=== PATIENT | female | born 1995 | race Two or more races ===

== ENCOUNTER 2017-05-12 07:02 | Emergency (ER) | payer OTHER ==
--- NOTE | 2017-05-12 08:06 | ED ---
Yousuf Rodriguez Angela, scribed for Herbie Esqueda MD on 05/12/17 at 0756 . Asthma - HPI Summary HPI Summary: This pt is a 22 y/o female presenting to [facility] c/o an asthma attack this morning. Pt reports that her asthma attack today was induced by anxiety and her period. Today, pt has final exams and was on her way to take her exam. She also states that when she has her period, she has "really bad cramps" and gets nauseous. Today, her cramps were worse and had difficulty breathing and had nausea. At the health center, pt reports her abd was bloated. In the ambulance, pt notes her feet, hand and head were numb, now resolved. Pt was given albuterol and a nebulizer in the ambulance. Currently, pt denies any pain and states feeling better. She currently denies any calf pain, SOB, cough. LMP: 1 month ago, currently on it now. - History of Current Complaint Chief Complaint: EDShortnessOfBreath Stated Complaint: ASTHMA ATTACK Time Seen by Provider: 05/12/17 07:47 Hx Obtained From: Patient Onset/Duration: Sudden Onset, Resolved Timing: Hours Current Severity: None Pain Intensity: 0 Pain Scale Used: 0-10 Numeric Aggravating Symptoms: Other: - anxiety and menses Alleviating Symptoms: Inhalers/Nebulizers Associated Signs and Symptoms: Positive: Shortness of Breath - now resolved. Negative: Calf Pain, Edema, URI, Sinus Infection - Allergy/Home Medications Allergies/Adverse Reactions: Allergies Allergy/AdvReac Type Severity Reaction Status Date / Time No Known Allergies Allergy Verified 05/12/17 07:03 PMH/Surg Hx/FS Hx/Imm Hx Endocrine/Hematology History: Denies: Hx Diabetes Cardiovascular History: Denies: Hx Hypertension Infectious Disease History: No Infectious Disease History: Denies: Traveled Outside the [place] in Last 30 Days - Family History Known Family History: Positive: Hypertension, Diabetes, Other - Asthma - Social History Alcohol Use: Occasionally Substance Use Type: Reports: None Smoking Status (MU): Never Smoked Tobacco Review of Systems Negative: Fever, Chills Eyes: Negative ENT: Negative Cardiovascular: Negative Positive: Shortness Of Breath Gastrointestinal: Other - bloated abd, now resolved Positive: Nausea - now resolved Negative: Other - calf pain Skin: Negative Positive: Numbness - in feet, hands, and head (now resolved) Positive: Anxious - now resolved All Other Systems Reviewed And Are Negative: Yes Physical Exam - Summary Physical Exam Summary: General: well-appearing, no pain distress Skin: warm, color reflects adequate perfusion, dry Head: normal Eyes: EOMI, CAROLE ENT: normal Neck: supple, nontender Respiratory: CTA, breath sounds present Cardiovascular: RRR Abdomen: soft, nontender Bowel: present Musculoskeletal: normal, strength/ROM intact Neurological: normal, sensory/motor intact, A&O x3 Psychological: affect/mood appropriate Triage Information Reviewed: Yes Vital Signs On Initial Exam: Initial Vitals Temp Pulse Resp BP Pulse Ox 98 F 79 22 122/67 99 05/12/17 07:04 05/12/17 07:04 05/12/17 07:04 05/12/17 07:04 05/12/17 07:04 Vital Signs Reviewed: Yes Diagnostics - Vital Signs Vital Signs Temp Pulse Resp BP Pulse Ox 05/12/17 07:04 98 F 79 22 122/67 99 - Laboratory Lab Statement: Any lab studies that have been ordered have been reviewed, and results considered in the medical decision making process. Asthma Course/Dx - Course Course Of Treatment: Medications reviewed. BP noted and advised to follow up with PCP. PATIENT REPORTS WAS ANXIOUS WALKING TO HER FINAL EXAM AND HER PERIOD CRAMPS STARTED. TYPICALLY HER 1ST DAY PERIOD CRAMPS ARE SEVERE AND THEY CAUSE HER TO HAVE DIFFICULTY BREATHING. GREATLY IMPROVED WITH NEG IN AMBULANCE. NO PAIN NOW. SHE PLANS TO F/U WITH HER HOME [facility]UD [facility]ER AT HOME AFTER FINALS. WE DICUSSED DOING LAB WORK/ULTRASOUND/PELVIC/CXR IN THE ED. PATIENT STATES SHE FEELS BACK TO NORMAL AND WOULD LIKE TO BE DISCHARGED. - Diagnoses Provider Diagnoses: Asthma, Pelvic pain, Dysmenorrhea Discharge - Discharge Plan Condition: Stable Disposition: HOME Prescriptions: Albuterol HFA INHALER* [Ventolin HFA Inhaler*] 2 puff INH Q4H PRN #1 mdi PRN Reason: Dyspnea Patient Education Materials: Dysmenorrhea (ED), Asthma (ED), Pelvic Pain (ED) Forms: *School Release Referrals: [facility] [Primary Care Provider] - Additional Instructions: FOLLOW UP WITH YOUR DOCTOR AT [facility] AND YOUR [facility]. RETURN TO THE EMERGENCY DEPARTMENT FOR ANY WORSENING OF YOUR CONDITION; SHORTNESS OF BREATH, ABDOMINAL OR PELVIC PAIN, YOU FEEL ILL OR QUESTIONS OR CONCERNS. The documentation as recorded by the Yousuf pryor Angela accurately reflects the service I personally performed and the decisions made by me, Herbie Esqueda MD.
[2017-05-12 08:17] VITALS: BP 119/72
== END 2017-05-12 08:19 | disposition home or self-care (01) ==
LOC: ED 07:02
DX: J45.909 Unspecified asthma, uncomplicated (principal); R10.2 Pelvic and perineal pain; N94.6 Dysmenorrhea, unspecified